=== PATIENT | male | born 1960 | race Caucasian/White ===

== ENCOUNTER 2016-11-28 10:38 | Emergency (ER) | payer OTHER ==
[~2016-11-28] VITALS: Ht 175.3 cm; Wt 76.6 kg
[~2016-11-28 10:38] MED LIST: ACID CONTROL150 MG PO; CARAFATE1 GM PO; DEPRESSION PILL PO; DESYREL100 MG PO; FLEXERIL10 MG PO; GEODON40 MG PO; LITHIUM CARBON300 M1 PO; NOHOMEMEDS; PREDNISONE50 MG PO; PRILOSEC20 MG PO; PROAIR HFA8.5 GM IH; PROVENTIL HFA6.7 GM IH; PROVENTIL,2.5 MG/3 M IH; SYMBICORT60 INHALA1 IH; TRAMADOL HCL50 MG PO; TYLENOL WITH C1 EACH PO; ZESTORETIC 20-1 EAC1 NG; [UNRECOGNIZED DRUG - REMARK] PO
[2016-11-28 11:27] LABS: HEMATOCRIT 45.1 % (38.0-50.0); MCH 31.1 PG (29.0-34.0); MCHC 35.5 G/DL (30.0-36.0); MCV 87.6 FL (86-99); MEAN PLAT.VOLUME 8.8 uM^3 (9.0-12.4); PLATELET COUNT 477 K/uL (156-360); RBC DIS.WIDTH-SD 37.9 % (39-53); RED BLOOD COUNT 5.15 M/uL (4.00-5.50); WHITE BLOOD COUNT 12.1 K/uL (4.1-10.2)
[2016-11-28 11:36] LABS: CHLORIDE 99 mEq/L (99-109); POTASSIUM 4.2 mEq/L (3.7-5.4); SODIUM 134 mEq/L (136-147)
[2016-11-28 11:38] LABS: GLUCOSE 102 mg/dL (70-99)
[2016-11-28 11:39] LABS: ANION GAP 9 MEQ/L (2-14)
[2016-11-28 11:40] LABS: TOTAL BILIRUBIN 0.6 mg/dL (0.0-1.0)
[2016-11-28 11:41] LABS: ALKALINE PHOSPHATASE 58 IU/L (3-129)
[2016-11-28 11:42] LABS: GFR ESTIMATE (CALCULATED) > 59 mL/min/
[2016-11-28 11:43] LABS: UREA NITROGEN (BUN) 10 mg/dL (9-23)
[2016-11-28 11:53] LABS: TROP-I INTERPRETATION NEGATIVE; TROPONIN-I 0.01 ng/mL (0.0-0.30)
[2016-11-28 12:27] LABS: BASOPHIL COUNT 0.1 K/uL (0-0.1); EOSINOPHIL (%) 1.6 % (0-5); EOSINOPHIL COUNT 0.2 K/uL (0-0.3); HEMATOLOGY COMMENT 1 SMEAR COMPATIBLE; IMMATURE GRANULOCYTE (%) 3.2 % (0.0-0.7); IMMATURE GRANULOCYTE COUNT 3.9 K/uL; LYMPHOCYTE COUNT 2.8 K/uL (1.0-2.8); MONOCYTE (%) 8.8 % (3-12); MONOCYTE COUNT 1.1 K/uL (0-0.8); NEUTROPHIL (%) 62.6 % (45-76); NEUTROPHIL COUNT 7.6 K/uL (1.8-6.4); PLAT.SUFFICIENCY INCREASED; USER ID TLW
[2016-11-28 12:40] VITALS: BP 136/78
== END 2016-11-28 12:42 | disposition home or self-care (01) ==
LOC: EME 10:38
PROVIDERS: Emergency Medicine
DX: R07.89 Other chest pain (principal); F17.200 Nicotine dependence, unspecified, uncomplicated; K21.9 Gastro-esophageal reflux disease without esophagitis; Z88.0 Allergy status to penicillin; Z88.6 Allergy status to analgesic agent; J44.9 Chronic obstructive pulmonary disease, unspecified; I10 Essential (primary) hypertension; J45.909 Unspecified asthma, uncomplicated
CPT/HCPCS: 71010; 80053; 84484; 85025; 93005; 99281; 99284

== ENCOUNTER 2017-04-08 19:56 | Emergency (ER) | payer OTHER ==
[~2017-04-08] VITALS: Ht 175.3 cm; Wt 79.7 kg
[2017-04-08 20:52] LABS: HEMATOCRIT 41.6 % (38.0-50.0); MCH 32.4 PG (29.0-34.0); MCHC 34.6 G/DL (30.0-36.0); MCV 93.7 FL (86-99); MEAN PLAT.VOLUME 8.6 uM^3 (9.0-12.4); PLATELET COUNT 369 K/uL (156-360); RBC DIS.WIDTH-CV 11.9 % (11.8-14.6); RED BLOOD COUNT 4.44 M/uL (4.00-5.50); WHITE BLOOD COUNT 12.7 K/uL (4.1-10.2)
[2017-04-08 21:01] LABS: CHLORIDE 103 mEq/L (99-109); POTASSIUM 3.9 mEq/L (3.7-5.4); SODIUM 138 mEq/L (136-147)
[2017-04-08 21:02] LABS: GLUCOSE 81 mg/dL (70-99)
[2017-04-08 21:04] LABS: ANION GAP 11 MEQ/L (2-14)
[2017-04-08 21:06] LABS: GFR ESTIMATE (CALCULATED) > 59 mL/min/
[2017-04-08 21:07] LABS: UREA NITROGEN (BUN) 5 mg/dL (9-23)
[2017-04-08 21:50] LABS: TROP-I INTERPRETATION NEGATIVE; TROPONIN-I < 0.01 ng/mL (0.0-0.30)
[2017-04-08 22:11] LABS: HDL CHOLESTEROL 37 MG/DL (Desirable>=40); LDL CHOLESTEROL 47 mg/dL (Desirable<100); NON-HDL CHOLESTEROL 86 mg/dL (Desirable<160); TOTAL CHOLESTEROL 123 mg/dL (Desirable<200); TRIGLYCERIDES 194 MG/DL (Normal: <150)
[2017-04-08 23:30] VITALS: BP 132/73
[2017-04-09 06:56] LABS: Estimated Average Glucose 105 mg/dL (70-123); HEMOGLOBIN A1c (GLYCOHEMOGLOB) 5.3 % HGB (Below 5.7)
== END 2017-04-08 23:42 | disposition home or self-care (01) ==
LOC: EME 19:56
PROVIDERS: Emergency Medicine
DX: R55 Syncope and collapse (principal); R51 Headache; R42 Dizziness and giddiness; J43.9 Emphysema, unspecified; I10 Essential (primary) hypertension; J45.909 Unspecified asthma, uncomplicated; F17.200 Nicotine dependence, unspecified, uncomplicated; Z71.6 Tobacco abuse counseling
CPT/HCPCS: 70450; 71020; 80048; 80061; 81003; 83036; 84484; 85027; 93005; 94640; 99281; 99285

== ENCOUNTER 2017-10-27 18:35 | Emergency (ER) | payer OTHER ==
[~2017-10-27] VITALS: Ht 175.3 cm; Wt 78.5 kg
[2017-10-27] MEDS ORDERED: NEURONTIN300 MG PO (19:59)
[2017-10-27 20:10] VITALS: BP 104/69
== END 2017-10-27 20:11 | disposition home or self-care (01) ==
LOC: EME 18:35
DX: G62.9 Polyneuropathy, unspecified (principal); G89.29 Other chronic pain; M54.9 Dorsalgia, unspecified; K21.9 Gastro-esophageal reflux disease without esophagitis; F17.200 Nicotine dependence, unspecified, uncomplicated; Z88.0 Allergy status to penicillin; Z88.6 Allergy status to analgesic agent
CPT/HCPCS: 99281; 99284

== ENCOUNTER 2017-12-03 10:44 | Emergency (ER) | payer OTHER ==
[~2017-12-03] VITALS: Ht 175.3 cm; Wt 76.2 kg
[~2017-12-03 10:44] MED LIST changes: +NEURONTIN300 MG PO
[2017-12-03 14:17] LABS: BASOPHIL (%) 0.3 % (0-1); EOSINOPHIL (%) 0 % (0-5); HEMATOCRIT 43.3 % (38.0-50.0); HEMOGLOBIN 14.7 G/DL (12.5-16.6); IMMATURE GRANULOCYTE (%) 0.8 % (0.0-0.7); LYMPHOCYTE (%) 9.2 % (15-42); LYMPHOCYTE COUNT 1.4 K/uL (1.0-2.8); MCH 31.6 PG (29.0-34.0); MCHC 33.9 G/DL (30.0-36.0); MCV 93.1 FL (86-99); MONOCYTE (%) 2.9 % (3-12); MONOCYTE COUNT 0.4 K/uL (0-0.8); NEUTROPHIL (%) 86.8 % (45-76); NEUTROPHIL COUNT 12.8 K/uL (1.8-6.4); PLATELET COUNT 280 K/uL (156-360); RBC DIS.WIDTH-CV 12.5 % (11.8-14.6); RBC DIS.WIDTH-SD 42.9 % (39-53); RED BLOOD COUNT 4.65 M/uL (4.00-5.50); WHITE BLOOD COUNT 14.7 K/uL (4.1-10.2)
[2017-12-03 14:25] LABS: CHLORIDE 105 mEq/L (99-109); POTASSIUM 4.2 mEq/L (3.7-5.4); PTT 32.5 SEC (25-37); SODIUM 139 mEq/L (136-147)
[2017-12-03 14:27] LABS: GLUCOSE 110 mg/dL (70-99)
[2017-12-03 14:31] LABS: CREATININE 0.7 mg/dL (0.6-1.3); GFR ESTIMATE (CALCULATED) > 59 mL/min/ (58.99-99999)
[2017-12-03 14:32] LABS: UREA NITROGEN (BUN) 14 mg/dL (9-23)
[2017-12-03 15:01] LABS: HDL CHOLESTEROL 55 MG/DL (Desirable>=40); LDL CHOLESTEROL 53 mg/dL (Desirable<100); NON-HDL CHOLESTEROL 65 mg/dL (Desirable<160); TOTAL CHOLESTEROL 120 mg/dL (Desirable<200); TRIGLYCERIDES 60 MG/DL (Normal: <150)
[2017-12-03 19:55] VITALS: BP 125/75
[2017-12-04 10:44] LABS: HEMOGLOBIN A1c (GLYCOHEMOGLOB) 5.5 % (Below 5.7)
== END 2017-12-03 20:03 | disposition home or self-care (01) ==
LOC: EME 10:44
PROVIDERS: Emergency Medicine
DX: R53.1 Weakness (principal); R25.1 Tremor, unspecified; M62.838 Other muscle spasm; K21.9 Gastro-esophageal reflux disease without esophagitis; I10 Essential (primary) hypertension; E78.00 Pure hypercholesterolemia, unspecified; F17.200 Nicotine dependence, unspecified, uncomplicated; Z88.0 Allergy status to penicillin; Z88.6 Allergy status to analgesic agent
CPT/HCPCS: 70450; 80048; 80061; 83036; 85025; 85610; 85730; 93005; 93880; 99281; 99285